=== PATIENT | male | born 1990 | race African-American/Black ===

== ENCOUNTER 2017-04-01 14:35 | Emergency (ER) | payer OTHER ==
[~2017-04-01] VITALS: Ht 188 cm; Wt 72.6 kg
[2017-04-01 14:41] VITALS: BP 129/70
--- NOTE | 2017-04-01 14:54 | ED HAND/WRIST INJURY COMPLAINT ---
History of Present Illness General Chief Complaint: Laceration Procedure Stated Complaint: LAC TO RIGHT THUMB FROM POCKET KNIFE Source: patient, old records Exam Limitations: no limitations Vital Signs & Intake/Output Vital Signs & Intake/Output Vital Signs Date Time Temp Pulse Resp B/P B/P Pulse O2 O2 Flow FiO2 Mean Ox Delivery Rate 04/01 1441 98.1 96 20 129/70 98 Room Air Allergies Coded Allergies: No Known Allergies (04/01/17) Reconcile Medications No Known Home Medications Triage Note: PT STATES A CO WORKER BUMPED HIM WHILE HE WAS HOLDING A KNIFE CUTTING STRAPS. +LAC TO RIGHT THUMB, BLEEDING CONTROLLED. UNKNOWN LAST TD Triage Nurses Notes Reviewed? yes Occurred: just prior to arrival Duration: hour(s): (1), constant Timing: recent history Injury Environment: work Severity: mild Severity Numbers: 4 Pain/Injury Location: Right: 1st finger. Context: laceration Method of Injury: laceration No Modifying Factors: none Associated Symptoms: none HPI: 26-year-old male presents with his father for evaluation status post sustaining injury at work to his right first finger. The patient states he was using a pocket knife at work that he had in his pocket. He states friend bumped into him causing laceration to his finger. He denies any numbness tingling or pain at this time at its worst it was stinging throbbing intermittent in nature 4 out of 10. He is left-hand dominant. His last tetanus unknown no modifying factors or associated symptoms otherwise. Past History Travel History Traveled to [place] past 21 day No Medical History Any Pertinent Medical History? none Surgical History Surgical History: none Psychosocial History What is your primary language Portuguese Tobacco Use: Never used ETOH Use: denies use Illicit Drug Use: denies illicit drug use Family History Hx Contributory? No Review of Systems Review of Systems Constitutional: Reports: see HPI. All Other Systems: Reviewed and Negative Comments Review of systems: See HPI, All other systems negative. Constitutional, no chills no fever, no malaise HEENT: no sore throat no congestion, Cardiovascular: No chest pain , no palpitation Skin: no rashes, no change in skin Respiratory: No dyspnea no cough no sputum GI: No nausea no vomiting, no diarrhea, Muscle skeletal: No joint pain, no joint swelling, no back pain, no neck pain, Neurologic: No numbness n no headache Psych: No stress Heme/endocrine: No bruising IMMUNE: NO LYMPHADENOPATHY Physical Exam Physical Exam General Appearance: well developed/nourished, no apparent distress, alert, awake Hand Left: normal inspection, normal range of motion Hand Right: lacerations, 1st finger Comments: Well-developed well-nourished patient in no apparent distress. HEENT: Atraumatic, extraocular motion intact Neck: Supple, FROM Back: FROM Cardiovascular: Regular rate and rhythms no murmurs rubs or gallops, Respiratory: No respiratory distress. Patient speaking in full complete sentences. Extremities: There is a superficial skin avulsion noted to the distal palmar aspect the right first finger and a laceration to the distal aspect of the right first fingernail, no active bleeding, capillary refills within normal limits no visualized or palpated foreign body full range of motion, no tendon injury Neuro: awake, alert, and oriented to person, place and time. There were no obvious focal neurologic abnormalities. Skin: Warm & dry;No appreciable rash on exposed skin Psych: Mood affect normal, normal memory normal judgment. Progress Differential Diagnosis: compartment syndrome, dislocation, fracture, paronychia, laceration sprain contusion avulsion Plan of Care: Current Medications Sig/Jasmin Start time Last Medication Dose Stop Time Status Admin Tetanus/Diphtheria 0.5 ML ONCE ONE 04/01 151 AC Toxoids Adsorbed 04/01 1516 (Decavac) Wound thoroughly irrigated with normal saline Betadine peroxide. Dermabond was applied to the wound patient tolerated procedure well sterile dressing applied discussed the patient father return precautions tetanus IM ordered they feel comfortable with plan cleared for discharge (ALIZA MARCH,JERONIMO) Departure Departure Time of Disposition: 1511 Disposition: HOME OR SELF CARE Condition: Stable Clinical Impression Primary Impression: Laceration Additional Instructions: Keep area clean and covered. Tylenol Motrin for pain ice packs as discussed, follow up with her primary care physician or return to ER with any concerns or signs of infection: Redness warmth swelling discharge fever or chills. Departure Forms: Customer [employer] Employee Industrial Accident General Discharge Information Prescriptions: Current Visit Scripts No Known Home Medications
== END 2017-04-01 15:35 ==
LOC: ERH 14:35
DX: S61.011A Laceration without foreign body of right thumb without damage to nail, initial encounter (principal); W26.0XXA Contact with knife, initial encounter; Y93.9 Activity, unspecified; Y92.9 Unspecified place or not applicable
CPT/HCPCS: 90471; 90714